=== PATIENT | male | born 1980 | race African-American/Black ===

== ENCOUNTER 2020-03-06 12:09 | Emergency (ER) | payer OTHER ==
[~2020-03-06] VITALS: Ht 185.4 cm; Wt 113.4 kg
--- NOTE | 2020-03-06 12:33 | Emergency Department Note ---
History of Present Illnes History of Present Illness Chief Complaint: COVID PUI History of Present Illness This is a 39 year old male who presents to the ED for 5 week h/o of cough . PMH of asthma and PSH and lobectomy. Patient with POSITIVE COVID-19 infection on 01/30/2020 but has since tested negative yesterday .Patient states that fever and myalgias has dissipated but cough has remain persistant. Historian: Patient Arrival Mode: Car Onset (how long ago): week(s) (5) Severity: mild Onset quality: gradual Duration (how long): week(s) (5) Progression: unchanged Chronicity: new Context: Reports recent illness Relieving factors: none Exacerbating factors: none Associated symptoms: Reports cough; Denies fever/chills Treatments prior to arrival: none Past Medical/Family History Physician Review I have reviewed the patient's past medical and family history. Any updates have been documented here. Past Medical History Recent Fever: No Clinical Suspicion of Infectio: No New/Unexplained Change in Ment: No Other Medical History: pneumonia Other Surgery: lobectomy 2017 from pneumonia Social History Smoking Cessation: Current every day smoker Counseling Performed: No Alcohol Use: Occasional Any Illegal Drug Use: No Physically hurt or threatened: No Other Any Pre-Existing Lines (PICC,: No Review of Systems Review of Systems Constitutional: Reports no symptoms EENTM: Reports no symptoms Cardiovascular: Reports no symptoms Respiratory: Reports cough Gastrointestinal: Reports no symptoms Genitourinary: Reports no symptoms Musculoskeletal: Reports no symptoms Integumentary: Reports no symptoms Neurological: Reports no symptoms Psychological: Reports no symptoms Endocrine: Reports no symptoms Hematological/Lymphatic: Reports no symptoms Physical Exam Related Data Allergies: Coded Allergies: No Known Allergies (Unverified , 03/06/20) Triage Vital Signs Vital Signs Date Time Temp Pulse Resp B/P (MAP) Pulse Ox O2 Delivery O2 Flow Rate FiO2 03/06/20 12:21 97.0 79 18 146/76 99 Vital signs reviewed: Yes Physical Exam CONSTITUTIONAL Constitutional: Present well-developed, Present well-nourished HENT HENT: Present normocephalic, Present atraumatic, Present oropharynx clear/moist, Present nose normal HENT L/R: Present left ext ear normal, Present right ext ear normal EYES Eyes: Reports PERRL, Reports conjunctivae normal NECK Neck: Present ROM normal PULMONARY Pulmonary: Present effort normal, Present breath sounds normal CARDIOVASCULAR Cardiovascular: Present regular rhythm, Present heart sounds normal, Present capillary refill normal, Present normal rate GASTROINTESTINAL Abdominal: Present soft, Present nontender, Present bowel sounds normal GENITOURINARY Genitourinary: Present exam deferred SKIN Skin: Present warm, Present dry MUSCULOSKELETAL Musculoskeletal: Present ROM normal NEUROLOGICAL Neurological: Present alert, Present oriented x 3, Present no gross motor or sensory deficits PSYCHOLOGICAL Psychological: Present mood/affect normal, Present judgement normal Assessment & Plan Medical Decision Making MDM Diff Dx : URI , covid-19 URI, pneumonia Assessment & Plan Final Impression: (1) Upper respiratory infection Depart Disposition: HOME, SELF-CARE Last Vital Signs Date Time Temp Pulse Resp B/P (MAP) Pulse Ox O2 Delivery O2 Flow Rate FiO2 03/06/20 12:21 97.0 79 18 146/76 99 TODD CAGLE DO Mar 06, 2020 12:32
--- OUTSIDE RECORDS SUMMARY | 2020-03-06 12:52 | XMS REPORT | Clinical Summary ---
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 Active fluticasone (FLONASE) 50 1 spray by 0 mcg/actuation nasal spray Nasal route daily. Active fluticasone-salmeterol Inhale 2 0 (ADVAIR) 250-50 mcg/dose puffs by diskus inhaler mouth via inhaler 2 (two) times daily. Active albuterol (ACCUNEB) 0.63 Take 1 ampule 0 mg/3 mL nebulizer by solution nebulization every 4 (four) hours as needed for Wheezing. Active acetaminophen-codeine Take 1 tablet 0 05/27/20 1 (TYLENOL #3) 300-30 mg by mouth as 6 per tablet directed Q4-6H PRN. Active Problems Problem Noted Date Chest wall abscess 06/12/2016 Chest wall hematoma, right, initial encounter 2015 Hematoma of right chest wall 05/11/2016 Hematoma 05/01/2016 Acute blood loss anemia 04/01/2016 Leukocytosis (leucocytosis) 04/01/2016 Venous thrombosis 04/01/2016 Tachycardia 04/01/2016 Postprocedural pneumothorax 04/01/2016 Postoperative pain 04/01/2016 Acute pulmonary insufficiency following thoracic surg jose 03/29/2016 SIRS (systemic inflammatory response syndrome) 03/29 Postoperative anemia due to acute blood loss 016 Pneumonia due to infectious organism 03/29/2016 Chest pain on breathing 03/28/2016 Lung abscess 03/20/2016 Immunizations Name Dates Previously Given Next Due Pneumococcal 06/19/2016 Polysaccharide (Pneumovax) Social History Date Tobacco Use Types Packs/Day Years Used Former Smoker Tobacco Cessation: Ready to Quit: Yes; C ounseling Given: Yes Alcohol Use Drinks/Week oz/Week Comments No Sex Assigned at Date Recorded Not on file Industry Job Start Date Occupation Not on file Not on file Not on file Travel End Travel History Travel Start No recent travel history available. Last Filed Vital Signs Not on file Plan of Treatment Health Maintenance Due Date Last Done Comments INFLUENZA VACCINE (#1) 2019 PNEUMOCOCCAL VACCINE 2-64 Completed 06/19/2016 YEARS AT RISK Results Not on fileafter 03/06/2019 Insurance Payer Benefit Subscriber ID Type Phone Address Plan / Group MEDICAID - MEDICAID MGD [facility] xxxxxxxxx Medica id CARE COMM STAR Contracted PLAN [id number] Advance Directives For more information, please contact: [address] [address] Date Inactivated Comments Code Status Date Activated 05/15/2016 6:50 PM Full Code 05/11/2016 6:13 PM This code status was determined by: Patient 05/11/2016 6:13 PM Full Code 05/11/2016 6:59 AM This code status was determined by: Patient 04/18/2016 5:54 PM Full Code 04/09/2016 3:56 AM This code status was determined by: Patient 03/31/2016 9:29 AM Full Code 03/28/2016 6:22 PM This code status was determined by: Patient 03/28/2016 6:22 PM Full Code 03/20/2016 7:05 PM This code status was determined by: Patient
--- OUTSIDE RECORDS SUMMARY | 2020-03-06 12:52 | XMS REPORT | Clinical Summary ---
Author Author [facility] Organization [facility] Address Unknown Phone Unavailable Care Team Providers Care Visual Effects Editor Name Role Phone Mohini Tuttle DO PCP Allergies No Known Allergies Medications End Date Status Medication Sig Dispensed Refills Start Date Active tiotropium (SPIRIVA) 18 Place 1 0 mcg per inhalation capsule into capsule inhaler and inhale once daily. Active fluticasone (FLONASE) 50 2 sprays by 0 mcg/actuation nasal spray Each Nare route daily. Active montelukast (SINGULAIR) Take 10 mg by 0 10 mg tablet mouth nightly. Active cephalexin (KEFLEX) 500 Take 500 mg 0 MG capsule by mouth 4 (four) times a day. Active promethazine (PHENERGAN) Take by mouth 0 6.25 mg/5 mL syrup 4 (four) times a day as needed for nausea or vomiting. Active guaiFENesin (MUCINEX) 600 Take 600 mg 0 mg tablet extended by mouth release 12hr every 12 (twelve) hours. Active Problems Not on file Social History Date Tobacco Use Types Packs/Day Years Used Current Every Day Smoker Smokeless Tobacco: Current User Drinks/Week oz/Week Comments Alcohol Use No Sex Assigned at Date Recorded Not on file Industry Job Start Date Occupation Not on file Not on file Not on file Travel End Travel History Travel Start No recent travel history available. 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
--- OUTSIDE RECORDS SUMMARY | 2020-03-06 12:52 | XMS REPORT | Continuity of Care Document ---
Author Author [facility] Organization [facility] Address [address] [place] [address] Phone Unavailable Care Team Providers Care Entry Operator Name Role Phone Mohini Tuttle DO PCP CAS CARMONA Attphys Unavailable CAS CARMONA Admphys Unavailable Payers Payer Name Policy Type Policy Number Effective Date Expiration Date S ource Problems Condition Name Condition Details Condition Category Status Onset Date Resolution Date Last Treatment Date Treating Clinician Comments Source Chest wall abscess Chest wall abscess Disease Active 2016-06-12 00:00:[address] [facility] Hematoma of right chest wall Hematoma of right chest wall Disease Active 2016-05-11 00:00:[address] [facility] Hematoma Hematoma Disease Active 2016-05-01 00:00:00 [facility] Acute blood loss anemia Acute blood loss anemia Disease Active 2016-04-01 00:00:00 [facility] Leukocytosis (leucocytosis) Leukocytosis (leucocytosis) Disease Active 2016-04-01 00:00:[address] [facility] Venous thrombosis Venous thrombosis Disease Active 2016-04-01 00:00:00 [facility] Tachycardia Tachycardia Disease Active 2016-04-01 00:00:00 [facility] Postprocedural pneumothorax Postprocedural pneumothorax Disease Active 2016-04-01 00:00:[address] [facility] Postoperative pain Postoperative pain Disease Active 2016-04-01 00:00:[address] [facility] Acute pulmonary insufficiency following thoracic surge ry Acute pulmonary insufficiency following thoracic surgery Disease Active 2016-03-29 [facility]:00[facility] SIRS (systemic inflammatory response syndrome) SIRS (s ystemic inflammatory response syndrome) Disease Active 2016-03-29 00:00:00 [facility] Postoperative anemia due to acute blood loss Postopera tive anemia due to acute blood loss Disease Active 2016-03-29 00:00:[address] [facility] Pneumonia due to infectious organism Pneumonia due to infect ious organism Disease Active 2016-03-29 00:00:00 [facility] Chest pain on breathing Chest pain on breathing Disease Active 2016-03-28 00:00:00 [facility] Lung abscess Lung abscess Disease Active 2016-03-20 00:00:00 [facility] Allergies, Adverse Reactions, Alerts Allergy Name Allergy Type Status Severity Reaction(s) Onset Date Inacti ve Date Treating Clinician Comments Source No Known Allergies DA Active U 2018-11-30 00:00:00 [facility] Ciprocinonide Drug Allergy Active Severe 2016-05-23 00:00:00 [facility] Social History Social Habit Start Date Stop Date Quantity Comments Source Sex Assigned At [facility] Alcohol intake 2018-07-03 00:00:00 2018-07-03 00:00:00 Current non-drinker of alcohol (finding) Ayaz Sidhu Smoking Status Start Date Stop Date Source Current every day smoker 2018-07-03 00:00:00 Corazon Sidhu Former smoker 2016-07-17 00:00:00 2016-07-17 00:00:[address] [facility] Medications Ordered Medication Name Filled Medication Name Start Date Stop Da te Current Medication? Ordering Clinician Indication Dosage Frequency Signature (SIG) Comments Components Source cephalexin (KEFLEX) 500 MG capsule 2018-03-13 08:28:01 Yes 500mg Q.25D Take 500 mg by mouth 4 (four) times a day. Ayaz Sidhu promethazine (PHENERGAN) 6.25 mg/5 mL syrup 2018-03-13 08:28:01 Yes Q.25D Take by mouth 4 (four) times a day as needed for nausea or vomit ing. Ayaz Sidhu guaiFENesin (MUCINEX) 600 mg tablet extended release 12hr 2018-03-13 08:28:01 Yes 600mg Q12H Take 600 mg by mouth every 12 (t welve) hours. Ayaz Sidhu fluticasone (FLONASE) 50 mcg/actuation nasal spray 2018-03 08:12:19 Yes 2{spray} QD 2 sprays by Each Nare route daily. Ayaz Sidhu montelukast (SINGULAIR) 10 mg tablet 2018-03-13 08:12:19 Ye s 10mg QD Take 10 mg by mouth nightly. Ayaz smith tiotropium (SPIRIVA) 18 mcg per inhalation capsule 2017-07 07:29:45 Yes 1{capsule} QD Place 1 capsule into inhaler and inhale once daily. Ayaz Sidhu acetaminophen-codeine (TYLENOL #3) 300-30 mg per tablet 2016-05-27 00:00:00 Yes 1{tbl} Take 1 tablet by mouth as directed Q4-6H PRN. [facility] albuterol (ACCUNEB) 0.63 mg/3 mL nebulizer solution 2015-07 0 13:26:03 Yes 1{ampule} Take 1 ampule by nebulization every 4 (four) hours as needed for Wheezing. [facility] fluticasone (FLONASE) 50 mcg/actuation nasal spray 2016-03 21:52:29 Yes 1{spray} QD 1 spray by Nasal route daily. [facility] fluticasone-salmeterol (ADVAIR) 250-50 mcg/dose diskus inhal er 2016-03-20 21:52:29 Yes 2{puff} Q.5D Inhale 2 p uffs by mouth via inhaler 2 (two) times daily. [facility] lithium 300 mg tablet 2016-03-20 11:48:38 Yes 300mg Q.[id number] Take 300 mg by mouth 3 (three) times daily. [facility] Immunizations Ordered Immunization Name Filled Immunization Name Date Status Comments Source Pneumococcal Polysaccharide (Pneumovax) 2016-06-19 00:00:[address] [facility] Procedures This patient has no known procedures. Plan of Care Planned Activity Planned Date Details Comments Source Future Scheduled Test 2020-04-05 00:00:00 INFLUENZA VACCINE [code = INFLUENZA VACCINE] Ayaz Sidhu Future Scheduled Test 2019-03-06 00:00:00 INFLUENZA VACCINE (#1) [code = INFLUENZA VACCINE (#1)] [facility] Start Date/Time End Date/Time Encounter Type Admission Type [facility] Care Department Encounter ID Source 2019-02-20 00:28:00 2019-02-20 00:28:00 Emergency E BL [facility] [id number] [facility] 2017-02-11 14:00:00 2017-01-19 09:46:00 Inpatient Emilia [facility] [id number] [facility] Results Test Description Test Time Test Comments Results Result Comments Source BASIC METABOLIC PANEL 2018-11-30 21:04:00 Test Item SODIUM (test code = NA) 141 mmol/L 134-147 N POTASSIUM (test code = K) 3.9 mmol/L 3.4-5.0 N CHLORIDE (test code = CL) 110 mmol/L 100-108 H CARBON DIOXIDE (test code = CO2) 25 mmol/L 21-32 N ANION GAP (test code = GAP) 6.0 GAP calc 4.0-15.0 N GLUCOSE (test code = GLU) 83 MG/DL 70-110 N BLOOD UREA NITROGEN (test code = BUN) 12 MG/DL 7-18 N GLOMERULAR FILTRATION RATE (test code = GFR) >=60 max estimate estG FR >60 CREATININE (test code = CREAT) 0.9 MG/DL 0.8-1.3 N CALCIUM (test code = CA) 8.9 MG/DL 8.5-10.1 N - XR CHEST 2 [id number] 21:03:00 Name: JENISE ROTH Anthony : 1980 Age/S: 38 / M [id number] Unit #: [id number] Loc: [place] [address] Phys: Antony Hobbs MD Acct: [id number] Dis Date: Status: REG ER PHONE #: [phone] Exam Date: 11/30/20182054 FAX #: Reason: Cough EXAMS: CPT: [id number] XR CHEST 2 V 49591 Fluoro Time: DAP (Gy m2): Air Kerma (mGy): EXAM: - XR CHEST 2 V HISTORY: Cough. COMPARISON: None available time of interpretation. FINDINGS: Single AP view of the chest is provided. Heart size and vascularity are within normal limits. There is opacity in right mid and lower chest laterally. This could be surgical changes, scarring or atelectasis. No definite pleural effusion, pneumothorax, or acute osseous abnormality. IMPRESSION: Possible scarring or atelectasis in right lung laterally. at 2102 Reported and signed by: Teja Queen M.D. CC: Antony Hobbs MD PAGE 1 Signed Report Name: JENISE ROTH [facility] : 1980 Age/S: 38 / M [address] Unit #: [id number] Loc: [place] [address] Phys: Antony Hobbs MD Acct: [id number] Dis Date: Status: REG ER PHONE #: [phone] Exam Date: 11/30/20182054 FAX #: Reason: Cough EXAMS: CPT: [id number] XR CHEST 2 V 12043 Fluoro Time: DAP (Gy m2): Air Kerma (mGy): <Continued> Technologist: Armani Graham, RT(R)(CT)(MRI) Trnscb Date/Time: 11/30/2018 (2102) [email or web address] Orig Print D/T: S: 11/30/2018 (2105) PAGE 2 Signed Report CBC W/AUTO [id number] 20:37:00* Test Item Value Reference Range Interpretation Comments WHITE BLOOD CELL (test code = WBC) 7.8 K/mm3 3.5-11.0 N RED BLOOD CELL (test code = RBC) 5.18 M/mm3 4.70-6.10 N HEMOGLOBIN (test code = HGB) 15.4 G/DL 12.3-15.9 N HEMATOCRIT (test code = HCT) 43.8 % 35.8-46.7 N MEAN CELL VOLUME (test code = MCV) 84.6 Fl 86.3-98.9 L MEAN CELL HGB (test code = MCH) 29.7 pg 28.9-34.4 N MEAN CELL HGB CONCETRATION (test code = MCHC) 35.2 G/DL 32.1-34. 5 H RED CELL DISTRIBUTION WIDTH (test code = RDW) 13.1 SD 11.5-14. 5 N PLATELET COUNT (test code = PLT) 201.0 K/mm3 150-450 N MEAN PLATELET VOLUME (test code = MPV) 9.00 fL 7.0-9.6 N NEUTROPHIL % (test code = NT%) 55.8 % 40-76 N LYMPHOCYTE % (test code = LY%) 33.8 % 20.5-51.1 N MONOCYTE % (test code = MO%) 9.2 % 1.7-9.3 N EOSINOPHIL % (test code = EO%) 0.8 % 0.0-6.0 N BASOPHIL % (test code = BA%) 0.4 % 0.0-2.0 N NEUTROPHIL # (test code = NT#) 4.35 K/mm3 1.8-7.6 N LYMPHOCYTE # (test code = LY#) 2.6 K/mm3 0.6-3.0 N MONOCYTE # (test code = MO#) 0.7 K/mm3 0.2-1.5 N EOSINOPHIL # (test code = EO#) 0.1 K/mm3 0.0-0.4 N BASOPHIL # (test code = BA#) 0.0 K/mm3 0.0-0.2 N MANUAL DIFF REQUIRED (test code = MDIFF) NO DIFF/SCN CRITERIA WRIST RIGHT COMPLETE 3 VIEWS*GP*2016-12-31 15:08:18Right wrist, 3 viewsLocation Code: [id number] HISTORY: R WRIST PAINCOMPARISON: None.COMMENTS: AP, lateral, and oblique views of the right wrist demonstrate noacute fracture or malalignment. The soft tissues are unremarkable.IMPRESSION: No acute radiographic abnormality.
== END 2020-03-06 12:52 | disposition home or self-care (01) ==
LOC: FSED 12:09
DX: J06.9 Acute upper respiratory infection, unspecified (principal); R05 Cough; Z87.01 Personal history of pneumonia (recurrent)
CPT/HCPCS: 99282

== ENCOUNTER 2020-07-01 17:05 | Emergency (ER) | payer OTHER ==
[~2020-07-01] VITALS: Ht 185.4 cm; Wt 129.0 kg
[2020-07-01] MEDS ORDERED: KETOROLAC TROMETHAMINE 30 MG/ML VIAL IV STA (17:30)
[2020-07-01] MEDS ORDERED: FAMOTIDINE 20 MG/2 ML VIAL IV STA (17:30)
[2020-07-01] MEDS ORDERED: KETOROLAC TROMETHAMINE 30 MG/ML VIAL ONE (17:51)
[2020-07-01] MEDS ORDERED: FAMOTIDINE 20 MG/2 ML VIAL IV ONE (17:51)
== END 2020-07-01 19:40 | disposition home or self-care (01) ==
LOC: FSED 17:16
DX: R14.1 Gas pain (principal); J06.9 Acute upper respiratory infection, unspecified; F17.200 Nicotine dependence, unspecified, uncomplicated
CPT/HCPCS: 71046; 74177; 80048; 80076; 81003; 85025; 93005; 96374; 96375; 99284; J1885

== ENCOUNTER 2020-09-15 13:07 | Emergency (ER) | payer OTHER ==
[~2020-09-15] VITALS: Ht 185.4 cm; Wt 127.0 kg
[2020-09-15] MEDS ORDERED: ALBUTEROL/IPRATROPIUM 3 ML NEB NEB ONE (14:15)
[2020-09-15] MEDS ORDERED: ALBUTEROL/IPRATROPIUM 3 ML NEB ONE (14:29)
[2020-09-15] MEDS ORDERED: LEVOFLOXACIN500 MG PO (15:58)
[2020-09-15] MEDS ORDERED: NAPROSYN500 MG PO (16:00)
[2020-09-15] MEDS ORDERED: PREDNISONE20 MG PO (16:00)
[2020-09-15] MEDS ORDERED: ALBUTEROL2.5 MG/3 M INH (16:14)
[2020-09-15 16:35] VITALS: BP 119/72
== END 2020-09-15 16:40 | disposition home or self-care (01) ==
LOC: FSED 13:42
DX: R07.89 Other chest pain (principal); J20.9 Acute bronchitis, unspecified; J45.901 Unspecified asthma with (acute) exacerbation; M76.61 Achilles tendinitis, right leg; F17.210 Nicotine dependence, cigarettes, uncomplicated
CPT/HCPCS: 71046; 80053; 82553; 84484; 85025; 93005; 99283

== ENCOUNTER 2020-11-16 20:34 | Emergency (ER) | payer OTHER ==
[~2020-11-16] VITALS: Ht 185.4 cm; Wt 127.0 kg
[~2020-11-16 20:34] MED LIST: ALBUTEROL2.5 MG/3 M INH; LEVOFLOXACIN500 MG PO; NAPROSYN500 MG PO; PREDNISONE20 MG PO
[2020-11-16] MEDS ORDERED: DOXYCYCLINE HY100 MG PO (20:59)
[2020-11-16] MEDS ORDERED: IBUPROFEN IB200 MG PO (20:59)
[2020-11-16] MEDS ORDERED: LIDOCAINE HCL 2% LOCAL 20 ML VIAL ONE (21:09)
[2020-11-16] MEDS ORDERED: LIDOCAINE HCL 2% LOCAL 20 ML VIAL INJ ONE (21:30)
== END 2020-11-16 21:28 | disposition home or self-care (01) ==
LOC: FSED 20:59
DX: L72.3 Sebaceous cyst (principal); J45.909 Unspecified asthma, uncomplicated; Z87.01 Personal history of pneumonia (recurrent)
CPT/HCPCS: 69005; 99283; J2001; 69000

== ENCOUNTER 2020-12-10 18:05 | Emergency (ER) | payer OTHER ==
[~2020-12-10] VITALS: Ht 185.4 cm; Wt 128.4 kg
[~2020-12-10 18:05] MED LIST changes: +DOXYCYCLINE HY100 MG PO; +IBUPROFEN IB200 MG PO
[2020-12-10] MEDS ORDERED: LIDOCAINE VISC 2% SOLN 15 ML UDC ONE (18:41)
[2020-12-10] MEDS ORDERED: MAGNESIUM/ALUMINUM/SIMETHICONE 30 ML UDC ONE (18:42)
[2020-12-10] MEDS ORDERED: BELLADONNA ALK/PHENOBARBITAL 5 ML UDC ONE (18:42)
[2020-12-10] MEDS ORDERED: DONNATAL/LIDOCAINE/MAALOX 30 ML SUSP PO ONE (18:45)
[2020-12-10] MEDS ORDERED: DONNATAL/LIDOCAINE/MAALOX 30 ML SUSP PO SCH ×2 (21:00)
== END 2020-12-10 19:10 | disposition home or self-care (01) ==
LOC: FSED 18:31
DX: J02.9 Acute pharyngitis, unspecified (principal); K21.9 Gastro-esophageal reflux disease without esophagitis; J45.909 Unspecified asthma, uncomplicated; Z87.01 Personal history of pneumonia (recurrent)
CPT/HCPCS: 99283

== ENCOUNTER 2021-01-01 17:12 | Emergency (ER) | payer OTHER ==
[~2021-01-01] VITALS: Ht 185.4 cm; Wt 130.4 kg
[2021-01-01] MEDS ORDERED: FLONASE ALLERG9.9 ML INH (17:27)
[2021-01-01] MEDS ORDERED: OMEPRAZOLE40 MG PO (17:27)
[2021-01-01] MEDS ORDERED: BREO ELLIPTA 21 EACH INH (17:27)
[2021-01-01] MEDS ORDERED: CARAFATE1 GM/10 ML PO (17:27)
[2021-01-01] MEDS ORDERED: AUGMENTIN 875-1 EACH PO (18:54)
[2021-01-01] MEDS ORDERED: VENTOLIN HFA18 GM INH (18:54)
[2021-01-01] MEDS ORDERED: PREDNISONE20 MG PO (18:54)
== END 2021-01-01 19:11 | disposition home or self-care (01) ==
LOC: FSED 17:31
DX: R05 Cough (principal); J18.9 Pneumonia, unspecified organism; J90 Pleural effusion, not elsewhere classified; J45.909 Unspecified asthma, uncomplicated
CPT/HCPCS: 71250; 99283

== ENCOUNTER 2021-01-08 11:00 | Emergency (ER) | payer OTHER ==
[~2021-01-08] VITALS: Ht 185.4 cm; Wt 130.2 kg
[~2021-01-08 11:00] MED LIST changes: +AUGMENTIN 875-1 EACH PO; +BREO ELLIPTA 21 EACH INH; +CARAFATE1 GM/10 ML PO; +FLONASE ALLERG9.9 ML INH; +OMEPRAZOLE40 MG PO; +VENTOLIN HFA18 GM INH
[2021-01-08] MEDS ORDERED: HYDROCODONE/APAP 5MG-325MG TAB PO ONE (11:45)
[2021-01-08] MEDS ORDERED: DOXYCYCLINE HY100 MG PO (12:42)
== END 2021-01-08 13:05 | disposition home or self-care (01) ==
LOC: FSED 11:30
DX: L05.01 Pilonidal cyst with abscess (principal); K21.9 Gastro-esophageal reflux disease without esophagitis; J45.909 Unspecified asthma, uncomplicated; Z90.2 Acquired absence of lung [part of]; Z79.899 Other long term (current) drug therapy; Z79.52 Long term (current) use of systemic steroids
CPT/HCPCS: 99284

== ENCOUNTER 2021-03-12 13:39 | Emergency (ER) | payer OTHER ==
[~2021-03-12] VITALS: Ht 185.4 cm; Wt 130.9 kg
[2021-03-12] MEDS ORDERED: BREO ELLIPTA 21 EACH INH (14:18)
[2021-03-12] MEDS ORDERED: DOXYCYCLINE HY100 MG PO (16:28)
== END 2021-03-12 16:39 | disposition home or self-care (01) ==
LOC: FSED 14:17
DX: L02.31 Cutaneous abscess of buttock (principal); K21.9 Gastro-esophageal reflux disease without esophagitis; J45.909 Unspecified asthma, uncomplicated; E66.01 Morbid (severe) obesity due to excess calories; Z88.1 Allergy status to other antibiotic agents; Z68.38 Body mass index [BMI] 38.0-38.9, adult
CPT/HCPCS: 10060; 10061; 87071; 87205; 99283

== ENCOUNTER 2021-05-03 15:54 | Emergency (ER) | payer OTHER ==
[~2021-05-03] VITALS: Ht 185.4 cm; Wt 130.6 kg
== END 2021-05-03 17:27 | disposition home or self-care (01) ==
LOC: FSED 16:56
DX: R05.9 Cough, unspecified (principal); J20.9 Acute bronchitis, unspecified; J06.9 Acute upper respiratory infection, unspecified; K21.9 Gastro-esophageal reflux disease without esophagitis; F17.210 Nicotine dependence, cigarettes, uncomplicated
CPT/HCPCS: 71046; 99283

== ENCOUNTER 2021-08-17 07:55 | Emergency (ER) | payer OTHER ==
[~2021-08-17] VITALS: Ht 185.4 cm; Wt 130.6 kg
[2021-08-17] MEDS ORDERED: LIDOCAINE VISC 2% SOLN 15 ML UDC PO ONE (08:30)
[2021-08-17] MEDS ORDERED: LIDOCAINE VISC 2% SOLN 15 ML UDC ONE (08:30)
[2021-08-17] MEDS ORDERED: MAGNESIUM/ALUMINUM/SIMETHICONE 30 ML UDC ONE (08:30)
[2021-08-17] MEDS ORDERED: BELLADONNA ALK/PHENOBARBITAL 5 ML UDC ONE (08:30)
[2021-08-17] MEDS ORDERED: MAGNESIUM/ALUMINUM/SIMETHICONE 30 ML UDC PO ONE (08:30)
[2021-08-17] MEDS ORDERED: BELLADONNA ALK/PHENOBARBITAL 5 ML UDC PO SCH (09:00)
[2021-08-17] MEDS ORDERED: PANTOPRAZOLE SO40 MG PO (09:04)
[2021-08-17] MEDS ORDERED: LIDOCAINE HCL50 ML TOP (09:12)
== END 2021-08-17 09:31 | disposition home or self-care (01) ==
LOC: FSED 08:04
DX: R05.9 Cough, unspecified (principal); J06.9 Acute upper respiratory infection, unspecified; J45.909 Unspecified asthma, uncomplicated; K21.9 Gastro-esophageal reflux disease without esophagitis; F17.210 Nicotine dependence, cigarettes, uncomplicated
CPT/HCPCS: 99282

== ENCOUNTER 2021-10-13 04:16 | Emergency (ER) | payer OTHER ==
[~2021-10-13] VITALS: Ht 185.4 cm; Wt 129.7 kg
[~2021-10-13 04:16] MED LIST changes: +LIDOCAINE HCL50 ML TOP; +PANTOPRAZOLE SO40 MG PO
[2021-10-13] MEDS ORDERED: VENTOLIN HFA18 GM INH (05:06)
[2021-10-13] MEDS ORDERED: PREDNISONE20 MG PO (05:06)
[2021-10-13] MEDS ORDERED: AZITHROMYCIN250 MG PO (05:06)
[2021-10-13 05:07] VITALS: BP 129/78
== END 2021-10-13 05:10 | disposition home or self-care (01) ==
LOC: FSED 04:25
DX: R05.9 Cough, unspecified (principal); J06.9 Acute upper respiratory infection, unspecified; K21.9 Gastro-esophageal reflux disease without esophagitis; J45.909 Unspecified asthma, uncomplicated; Z87.01 Personal history of pneumonia (recurrent)
CPT/HCPCS: 71046; 83518; 87400; 99282

== ENCOUNTER 2022-01-22 13:21 | Emergency (ER) | payer OTHER ==
[~2022-01-22] VITALS: Ht 185.4 cm; Wt 129.3 kg
[~2022-01-22 13:21] MED LIST changes: +AZITHROMYCIN250 MG PO
[2022-01-22] MEDS ORDERED: MAGNESIUM/ALUMINUM/SIMETHICONE 30 ML UDC PO ONE (14:15)
[2022-01-22] MEDS ORDERED: LIDOCAINE VISC 2% SOLN 15 ML UDC PO ONE (14:15)
[2022-01-22] MEDS ORDERED: LIDOCAINE VISC 2% SOLN 15 ML UDC ONE (14:20)
[2022-01-22] MEDS ORDERED: MAGNESIUM/ALUMINUM/SIMETHICONE 30 ML UDC ONE (14:20)
== END 2022-01-22 14:30 | disposition home or self-care (01) ==
LOC: FSED 13:48
DX: K21.9 Gastro-esophageal reflux disease without esophagitis (principal); J45.909 Unspecified asthma, uncomplicated; F17.210 Nicotine dependence, cigarettes, uncomplicated
CPT/HCPCS: 99282

== ENCOUNTER 2022-02-17 07:50 | Emergency (ER) | payer OTHER ==
[~2022-02-17] VITALS: Ht 185.4 cm; Wt 127.5 kg
== END 2022-02-17 09:33 | disposition home or self-care (01) ==
LOC: FSED 07:56
DX: L02.31 Cutaneous abscess of buttock (principal); J45.909 Unspecified asthma, uncomplicated; K21.9 Gastro-esophageal reflux disease without esophagitis; Z86.19 Personal history of other infectious and parasitic diseases; F17.200 Nicotine dependence, unspecified, uncomplicated; Z88.1 Allergy status to other antibiotic agents; Z88.8 Allergy status to other drugs, medicaments and biological substances
CPT/HCPCS: 99283

== ENCOUNTER 2022-05-02 12:13 | Emergency (ER) | payer OTHER ==
[~2022-05-02] VITALS: Ht 185.4 cm; Wt 129.9 kg
[2022-05-02] MEDS ORDERED: MONTELUKAST SOD10 MG PO (13:33)
[2022-05-02] MEDS ORDERED: CETIRIZINE HCL10 MG (13:33)
[2022-05-02] MEDS ORDERED: CEPHALEXIN500 MG PO (13:38)
[2022-05-02] MEDS ORDERED: BENZONATATE100 MG PO (13:40)
== END 2022-05-02 13:50 | disposition home or self-care (01) ==
LOC: FSED 13:06
DX: R05.9 Cough, unspecified (principal); J18.9 Pneumonia, unspecified organism; J45.909 Unspecified asthma, uncomplicated; K21.9 Gastro-esophageal reflux disease without esophagitis; F17.210 Nicotine dependence, cigarettes, uncomplicated
CPT/HCPCS: 71045; 87400; 99283

== ENCOUNTER 2022-07-23 11:45 | Emergency (ER) | payer OTHER ==
[~2022-07-23] VITALS: Ht 185.4 cm; Wt 130.2 kg
[~2022-07-23 11:45] MED LIST changes: +BENZONATATE100 MG PO; +CEPHALEXIN500 MG PO; +CETIRIZINE HCL10 MG; +MONTELUKAST SOD10 MG PO
[2022-07-23] MEDS ORDERED: ONDANSETRON ODT4 MG PO (12:48)
[2022-07-23] MEDS ORDERED: SUCRALFATE1 GM PO (12:50)
== END 2022-07-23 13:03 | disposition home or self-care (01) ==
LOC: FSED 11:48
DX: K52.9 Noninfective gastroenteritis and colitis, unspecified (principal); R11.0 Nausea; K20.90 Esophagitis, unspecified without bleeding; K21.9 Gastro-esophageal reflux disease without esophagitis; J45.909 Unspecified asthma, uncomplicated
CPT/HCPCS: 99282

== ENCOUNTER 2022-11-24 08:47 | Emergency (ER) | payer OTHER ==
[~2022-11-24] VITALS: Ht 185.4 cm; Wt 128.8 kg
[~2022-11-24 08:47] MED LIST changes: +ONDANSETRON ODT4 MG PO; +SUCRALFATE1 GM PO
[2022-11-24] MEDS ORDERED: PREDNISONE 20 MG TAB PO ONE ×2 (09:00→09:45)
[2022-11-24] MEDS ORDERED: ALBUTEROL/IPRATROPIUM 3 ML NEB NEB ONE ×2 (09:00→09:45)
[2022-11-24] MEDS ORDERED: PROVENTIL HFA6.7 GM INH (09:47)
[2022-11-24] MEDS ORDERED: ALBUTEROL2.5 MG/3 M INH (09:48)
[2022-11-24] MEDS ORDERED: PREDNISONE20 MG PO (09:50)
[2022-11-24] MEDS ORDERED: AMOX TR-K CLV1 EAC2 PO (09:54)
[2022-11-24 09:59] VITALS: PULSE 84; RESP 17; O2SAT 98
== END 2022-11-24 10:12 | disposition home or self-care (01) ==
LOC: FSED 08:55
DX: R05.9 Cough, unspecified (principal); J20.9 Acute bronchitis, unspecified; J45.901 Unspecified asthma with (acute) exacerbation; K21.9 Gastro-esophageal reflux disease without esophagitis; F17.210 Nicotine dependence, cigarettes, uncomplicated
CPT/HCPCS: 83518; 87400; 99283; J7512